=== PATIENT | male | born 1975 | race Hispanic/Latino ===

== ENCOUNTER 2016-05-28 10:21 | Emergency (ER) | payer SELFPAY ==
[2016-05-28 11:42] VITALS: BP 118/71
--- NOTE | 2016-05-28 22:48 | Emergency Department Report ---
Entered by OLI VERNON, acting as scribe for RAUL LAWRENCE PA. ED Headache HPI - General Chief Complaint: Headache Stated Complaint: NAUSEA/ABD PAIN/HEADACHE Time Seen by Provider: 05/28/16 14:25 Source: patient Exam Limitations: no limitations - History of Present Illness Initial Comments: 41 y/o male with no significant PMHx, presents to the ED c/o intermittent headache beginning several days ago. The headache is described as mild (3 out of 10 severity) and intermittent, with the symptoms completely alleviated by taking 400 mg OTC ibuprofen. Associated symptoms of nausea, body aches, sinus pain behind the bilateral eyes, and non-productive cough, but he denies numbness , weakness, chest pain, SOB, fever, chills, and abdominal pain. 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 He has been taking Zyrtec for allergy symptoms. Timing/Duration: other (several days ago) Quality: other (3 out of 10 pain) Recent Head Trauma: no recent headache/trauma Modifying Factors: improves with: other (improves with 400 mg OTC ibuprofen) Associated Symptoms: other (nausea, body aches, sinus pain behind the eyes, non- productive cough) Allergies/Adverse Reactions: Allergies No Known Allergies Allergy (Unverified 05/28/16 11:36) Home Medications: Ambulatory Orders Amoxicillin [Amoxicillin TAB] 875 mg PO BID #10 tablet 05/28/16 Cetirizine HCl [ZyrTEC] 10 mg PO DAILY #15 tab.rapdis 05/28/16 Ibuprofen [Motrin 600 MG tab] 600 mg PO Q8H PRN #30 tablet 05/28/16 ED Review of Systems Comment: All other systems reviewed and negative Constitutional: other (body aches) ENT: other (sinus pain behind the bilateral eyes) Respiratory: cough (non-productive). denies: shortness of breath Cardiovascular: denies: chest pain Gastrointestinal: nausea. denies: abdominal pain, vomiting, diarrhea Neurological: headache (intermittent). denies: weakness, numbness ED Past Medical Hx - Past Medical History Previous Medical History?: No - Surgical History Past Surgical History?: No - Social History Smoking Status: Current Every Day Smoker Substance Use Type: None - Medications Home Medications: Home Medications Medication Instructions Recorded Confirmed Last Taken Type Amoxicillin [Amoxicillin TAB] 875 mg PO BID #10 tablet 05/28/16 Unknown Rx Cetirizine HCl [ZyrTEC] 10 mg PO DAILY #15 tab.rapdis 05/28/16 Unknown Rx Ibuprofen [Motrin 600 MG tab] 600 mg PO Q8H PRN #30 tablet 05/28/16 Unknown Rx ED Physical Exam - General Limitations: No Limitations - Neurological Exam Neurological exam: Present: alert, oriented X3, CN II-XII intact, normal gait, reflexes normal - Expanded Neurological Exam Expanded Neurological exam: Absent: innattentive, memory loss-remote event, memory loss- recent event, ataxia, expressive aphasia Patient oriented to: Present: person, place, time Speech: Present: fluid speech. Absent: expressive aphasia Cranial nerves: EOM's Intact: Normal, Tongue Deviation: Normal Cerebellar function: Finger to Nose: Normal Sensory exam: Upper Extremity Light Touch: Normal, Lower Extremity Light Touch: Normal Motor strength exam: RUE: 5, LUE: 5, RLE: 5, LLE: 5 DTR: bicep (R): 2+, bicep (L): 2+, knee (R): 2+, knee (L): 2+ - Other Other exam information: GENERAL: Patient is alert and oriented x 3. No apparent distress, normal gait, atraumatic. HEAD: Head is normocephalic and atraumatic. No sinus tenderness with percussion. EYES: Extraocular movements are intact. Pupils are equal, round, and reactive to light and accommodation. EARS: Symmetrical, atraumatic, non tender, ear canal clear with moderate cerumen , right tympanic membrane fluid levels, left TM normal. Gross auditory nml bilaterally. NOSE: Nose symmetrical, nontender. Nares appeared normal. MOUTH:Mouth is well hydrated and without lesions. NECK: Supple. Non edematous, no carotid bruits. No lymphadenopathy or thyromegaly. LUNGS: Symmetrical with respiration. No wheezing, rales or crackles, CTAB. HEART: Regular rate and rhythm with normal S1/S2 present. No murmurs, rubs, or gallops. ABDOMEN: Soft, nondistended. Nontender to palpation on all quadrants. No organomegaly was noted. Positive bowel sounds. No CVA tenderness. EXTREMITIES/MUSCULOSKELETAL: No cyanosis, clubbing, rash, lesions or edema. Full ROM bilaterally. UE/LE Pulses 2+ bilaterally. LE and UE 5+ strength bilaterally SKIN: Warm and dry. No lesions, ulceration or induration present NEUROLOGIC: No focal deficit. ED Course Vital Signs 05/28/16 11:38 Temperature 98.0 F Pulse Rate 107 H Respiratory 18 Rate Blood Pressure 118/71 O2 Sat by Pulse 99 Oximetry ED Medical Decision Making - Medical Decision Making 41 y/o male presents with sinus headache The symptoms are completely alleviated by taking 400 mg OTC ibuprofen. Stable vital signs and the patient is in no acute distress. Discussed with patient to follow up with PCP as referred, and to return to the ED if his symptoms return or worsen. Patient states understanding and will follow instructions. ED Disposition Clinical Impression: Sinus headache, Sinusitis chronic, frontal Disposition: DISCHARGED TO HOME OR SELFCARE Is pt being admited?: No Does the pt Need Aspirin: No Condition: Stable Instructions: Sinusitis (ED), Upper Respiratory Infection (ED) Prescriptions: Amoxicillin [Amoxicillin TAB] 875 mg PO BID #10 tablet Cetirizine HCl [ZyrTEC] 10 mg PO DAILY #15 tab.rapdis Ibuprofen [Motrin 600 MG tab] 600 mg PO Q8H PRN #30 tablet PRN Reason: Pain Referrals: PRIMARY CARE, [Primary Care Provider] - 3-5 Days MARTA MCDOWELL MD [Referring] - 3-5 Days TRAVIS DAVILA MD [Referring] - 3-5 Days [facility] [Outside] - 3-5 Days Forms: Work/School Release Form(ED) Time of Disposition: 15:05 This documentation as recorded by the SAULO amado GRACE,accurately reflects the service I personally performed and the decisions made by HOWARD castellano OYINLOLA A, PA.
== END 2016-05-28 15:10 | disposition home or self-care (01) ==
LOC: ED 10:21
DX: J32.1 Chronic frontal sinusitis (principal); F17.200 Nicotine dependence, unspecified, uncomplicated
CPT/HCPCS: 99282